=== PATIENT | female | born 1970 | race Caucasian/White ===

== ENCOUNTER → 2016-07-02 | Outpatient (CLI) | payer OTHER ==
--- NOTE | 2016-07-02 17:44 | MA ---
Digital Screening Mammogram History: Bilateral breast implants. Screening mammogram. Breast parenchymal density: Type III pattern. Technique: Four views of each breast are obtained including CC and oblique lateral Romulo (implant di splaced) and non-Romulo (implant not displaced) views. CAD is utilized using the [employer] product. Comparison: May 24, 2009; May 13, 2009; May 03, 2009. Findings: Bilateral breast implants are in place. There are no new masses, abnormal clusters of micro calcifications, or lymphadenopathy. Impression: Negative mammogram. BI-RADS 1. Routine screening is recommended in one year. Dense mammographic pattern limits the sensitivity of mammography in this patient. If there is a clini theresa palpable abnormality, recommend additional imaging with ultrasound, if clinically indicated. [facility] will send a result letter to the patient. Negative mammography should not preclude additional workup of a clinically suspicious finding. The patient's information is entered into a reminder system with a target due date for her next mammo gram.
== END ==
LOC: FIMAGING 13:07
DX: Z12.31 Encounter for screening mammogram for malignant neoplasm of breast (principal)
CPT/HCPCS: G0202

== ENCOUNTER → 2018-07-18 | Outpatient (CLI) | payer OTHER | LOC: FIMAGING 12:31 | PROVIDERS: ATTEND Obstetrics & Gynecology | DX: Z12.31 Encounter for screening mammogram for malignant neoplasm of breast (principal) ==